=== PATIENT | female | born 1990 | race Caucasian/White ===

== ENCOUNTER 2017-04-25 19:28 | Emergency (ER) | payer OTHER ==
[~2017-04-25] VITALS: Ht 157.5 cm; Wt 67.0 kg
[2017-04-25 19:39] VITALS: Ht 157.5 cm; Wt 67.0 kg
[2017-04-25 20:57] LABS: URINE BLOOD (Dip) POC Negative (NEGATIVE)
[2017-04-25] MEDS ORDERED: IBUPROFEN 200 MG TAB PO ONE (21:00)
[2017-04-25] MEDS ORDERED: CEPH-443 PO (22:10)
[2017-04-25 22:28] LABS: ADD UMIC YES; URINE BILIRUBIN (Dip) NEGATIVE (NEGATIVE); URINE BLOOD (Dip) NEGATIVE (NEGATIVE); URINE COLOR LT. YELLOW (YELLOW); URINE GLUCOSE (Dip) NEGATIVE (NEGATIVE); URINE KETONES (Dip) NEGATIVE (NEGATIVE); URINE LEUKOCYTE ESTERASE (Dip) TRACE (NEGATIVE); URINE NITRITE (Dip) NEGATIVE (NEGATIVE); URINE TOTAL PROTEIN (Dip) NEGATIVE (NEGATIVE); URINE UROBILINOGEN (Dip) 0.2 E.U./dL (0.1-1.0)
[2017-04-25 22:42] LABS: BACTERIA,URINE FEW; SQUAMOUS EPITHELIAL CELL,UR MODERATE; URINE RBCS 0-2 /HPF (0)
[2017-04-25 22:48] VITALS: BP 129/77; PULSE 100; RESP 20; TEMP 98.5
--- NOTE | 2017-04-25 22:54 | ERD ---
ER Documentation Chief Complaint Date/Time DATE: 04/25/17 TIME: 22:50 Chief Complaint painful/frequent urination x 1 day. hx of uti HPI 26-year-old female presenting with dysuria and frequency for the past month that have worsened within the past few days. She denies any associated fever, chills, nausea, vomiting, hematuria, or abdominal pain. She states that she has been getting frequent UTIs ever since she had her D&C in October 2016. She has been on multiple antibiotics. Her last antibiotics for about a month ago, which she thinks was amoxicillin. Her symptoms improved but again got worse. ROS All systems reviewed and are negative except as per history of present illness. Medications Home Meds Active Scripts Cephalexin* (Keflex*) 500 Mg Capsule, 500 MG PO TID for 10 Days, CAP Prov:MACHO SALAS MD 04/25/17 Reported Medications [None] No Conflict Check 04/03/11 Allergies Allergies: Coded Allergies: No Known Allergy (Verified , 04/25/17) Uncoded Allergies: liquid gels advil and tylenol (Allergy, Mild, 04/03/11) PMhx/Soc History of Surgery: Yes (spontaneous d&C) Anesthesia Reaction: No Hx Neurological Disorder: No Hx Respiratory Disorders: Yes (asthma) Hx Cardiac Disorders: No Hx Psychiatric Problems: No Hx Miscellaneous Medical Probl: Yes (Frequent UTIs) Hx Alcohol Use: No Hx Substance Use: No Hx Tobacco Use: No Smoking Status: Never smoker FmHx Family History: No diabetes Physical Exam Vitals Vital Signs Date Time Temp Pulse Resp B/P Pulse Ox O2 Delivery O2 Flow Rate FiO2 04/25/17 22:48 98.5 100 20 129/77 100 Room Air 04/25/17 19:39 98.5 82 20 123/72 100 Physical Exam Const: Nontoxic, well-nourished, no apparent distress Head: Atraumatic Eyes: Normal Conjunctiva ENT: Normal External Ears, Nose and Mouth. Neck: Full range of motion..~ No meningismus. Resp: Clear to auscultation bilaterally Cardio: Regular rate and rhythm, no murmurs Abd: Soft, non tender, non distended. Normal bowel sounds Skin: No petechiae or rashes Back: Mild right CVA tenderness present Ext: No cyanosis, or edema Neur: Awake and alert Psych: Normal Mood and Affect Results 24 hrs Laboratory Tests Test 04/25/17 20:52 04/25/17 21:01 Urine Color LT. YELLOW Urine Clarity CLEAR Urine pH 7.0 Urine Specific [place] 1.020 Urine Ketones NEGATIVE Urine Nitrite NEGATIVE Urine Bilirubin NEGATIVE Urine Urobilinogen 0.2 E.U./dL Urine Leukocyte Esterase TRACE Urine Microscopic RBC 0-2/HPF Urine Microscopic WBC 5-10/HPF Urine Squamous Epithelial Cells MODERATE Urine Bacteria FEW Urine Hemoglobin NEGATIVE Urine Glucose NEGATIVE% Urine Total Protein NEGATIVE Bedside Urine pH (LAB) 7.0 Bedside Urine Protein (LAB) 1+ Bedside Urine Glucose (UA) Negative Bedside Urine Ketones (LAB) Negative Bedside Urine Blood Negative Bedside Urine Nitrite (LAB) Negative Bedside Urine Leukocyte Esterase (L Trace Current Medications Medications (Trade) Dose Ordered Sig/Deanne Route PRN Reason Start Time Stop Time Status Last Admin Dose Admin Ibuprofen (Motrin) 400 mg ONCE ONCE PO 04/25/17 21:00 04/25/17 21:01 DC 04/25/17 20:54 Procedures/MDM Patient is presenting with symptoms of possible UTI. Her vitals are stable and she is afebrile. Exam and history is consistent with pyelonephritis, however the urine shows only about 10 WBCs with trace leukocytes. Urine culture was sent. The patient will be treated with Keflex for 10 days for possible pyelonephritis. Advil was recommended for pain. However I recommended follow- up with gynecology and urology given her frequent UTIs and chronic dysuria. I explained to the patient that she may have interstitial cystitis and her symptoms may not be due to an infection. I explained to her that she will need a referral from her primary care doctor. Patient is agreeable to the plan. I do not think labs are necessary at this time other than urinalysis and urine culture, as the patient does not have any signs of sepsis or organ failure. Departure Diagnosis: Primary Impression: UTI (urinary tract infection) Urinary tract infection type: acute pyelonephritis Qualified Code: N10 - Acute pyelonephritis Condition: Stable Patient Instructions: What Is Interstitial Cystitis?, Pyelonephritis, Female ( Adult) Additional Instructions: Discuss with your doctor referral to a [facility] and Urologist. MACHO SALAS MD Apr 25, 2017 22:54
== END 2017-04-25 22:49 | disposition home or self-care (01) ==
LOC: FTE 19:28
DX: N10 Acute pyelonephritis (principal); J45.909 Unspecified asthma, uncomplicated
CPT/HCPCS: 81001; 81003; 87086; 99283